=== PATIENT | male | born 1980 | race Two or more races ===

== ENCOUNTER 2021-05-09 22:52 | Emergency (ER) | payer SELFPAY ==
[~2021-05-09] VITALS: Ht 172.7 cm; Wt 83.9 kg
[2021-05-09 23:02] VITALS: BP 140/71
== END 2021-05-10 00:28 | disposition left against medical advice (07) ==
LOC: ER 22:57
DX: R07.89 Other chest pain (principal); Z53.21 Procedure and treatment not carried out due to patient leaving prior to being seen by health care provider
CPT/HCPCS: 71045; 93005